=== PATIENT | female | born 1990 | race Caucasian/White ===

== ENCOUNTER 2017-12-17 13:17 | Emergency (ER) | payer OTHER ==
[~2017-12-17] VITALS: Ht 160 cm; Wt 81.6 kg
[2017-12-17] MEDS ORDERED: DICYCLOMINE HCL 20 MG TAB PO ONE (14:15)
[2017-12-17] MEDS ORDERED: ONDANSETRON HCL 4 MG ORAL DISINTEGRATING TAB PO ONE (14:15)
[2017-12-17 14:43] VITALS: BP 152/85
== END 2017-12-17 14:12 | disposition left against medical advice (07) ==
LOC: FSED 13:17
DX: R10.84 Generalized abdominal pain (principal); F11.20 Opioid dependence, uncomplicated; F12.20 Cannabis dependence, uncomplicated
CPT/HCPCS: 99282